=== PATIENT | male | born 1990 | race Caucasian/White ===

== ENCOUNTER 2018-07-28 13:57 | Outpatient (CLI) | payer MEDICAID ==
[2018-07-28 13:57] VITALS: BP 134/91
[~2018-07-28 13:57] MED LIST: CEPH250T PO; HYDR-3965 PO; METR-159 PO
== END 2018-07-28 14:33 | disposition home or self-care (01) ==
LOC: ORTHO 13:57
PROVIDERS: ATTEND Nurse Practitioner Family
DX: M25.532 Pain in left wrist (principal); J45.909 Unspecified asthma, uncomplicated; F17.200 Nicotine dependence, unspecified, uncomplicated; Z79.899 Other long term (current) drug therapy
CPT/HCPCS: 73110; G0463

== ENCOUNTER 2019-05-10 08:10 | Emergency (ER) | payer MEDICAID ==
[~2019-05-10] VITALS: Ht 180.3 cm; Wt 127.3 kg
[2019-05-10 08:18] VITALS: BP 153/93
[2019-05-10] MEDS ORDERED: PENI500T2 PO (08:26)
== END 2019-05-10 08:42 | disposition home or self-care (01) ==
LOC: ER 08:10
DX: J02.0 Streptococcal pharyngitis (principal); R03.0 Elevated blood-pressure reading, without diagnosis of hypertension; R05 Cough; F12.90 Cannabis use, unspecified, uncomplicated; Z79.2 Long term (current) use of antibiotics; Z79.899 Other long term (current) drug therapy
CPT/HCPCS: 99283

== ENCOUNTER 2020-02-12 21:52 | Emergency (ER) | payer MEDICAID ==
[~2020-02-12] VITALS: Ht 180.3 cm; Wt 129.5 kg
--- NOTE | 2020-02-12 23:05 | NUR ---
relieving RN for break, pt is resting quietly on gurney, resp even and unlabored, talking full sentences, no difficulty swallowing, has had a sore throat x2 weeks, seen at [facility] one week ago and instructed to take OTC meds for sore throat, seen at [facility] today and prescribed antibiotic, took first dose today, coughing up blood today, Dr Beltran at bedside to evaluate pt
[2020-02-12 23:27] VITALS: BP 114/72
== END 2020-02-12 23:28 | disposition home or self-care (01) ==
LOC: ER 21:53
DX: R51 Headache (principal); H92.01 Otalgia, right ear; J02.9 Acute pharyngitis, unspecified; F12.90 Cannabis use, unspecified, uncomplicated; Z72.89 Other problems related to lifestyle; Z79.2 Long term (current) use of antibiotics
CPT/HCPCS: 99281

== ENCOUNTER 2022-12-17 22:12 | Emergency (ER) | payer MEDICAID ==
[~2022-12-17] VITALS: Ht 180.3 cm; Wt 136.4 kg
[2022-12-17 22:17] VITALS: BP 132/93
== END 2022-12-17 23:09 | disposition home or self-care (01) ==
LOC: ER 22:12
DX: J02.9 Acute pharyngitis, unspecified (principal); F12.90 Cannabis use, unspecified, uncomplicated
CPT/HCPCS: 87081; 87880; 99283

== ENCOUNTER 2022-12-29 07:25 | Emergency (ER) | payer MEDICAID ==
[~2022-12-29] VITALS: Ht 180.3 cm; Wt 124.0 kg
[2022-12-29 07:38] VITALS: BP_DIAS 87
[2022-12-29 08:22] VITALS: BP_SYST 132
[2022-12-29] MEDS ORDERED: GUAI-647 PO (08:33)
[2022-12-29] MEDS ORDERED: ONDA4TAB12 PO (08:33)
== END 2022-12-29 08:44 | disposition home or self-care (01) ==
LOC: ER 07:28
DX: J06.9 Acute upper respiratory infection, unspecified (principal); F12.90 Cannabis use, unspecified, uncomplicated; Z72.89 Other problems related to lifestyle; Z79.899 Other long term (current) drug therapy
CPT/HCPCS: 71046; 99283

== ENCOUNTER 2024-06-04 20:55 | Emergency (ER) | payer MEDICAID ==
[~2024-06-04] VITALS: Ht 180.3 cm; Wt 139.4 kg
[~2024-06-04 20:55] MED LIST changes: +ONDA-243 PO
[2024-06-04] MEDS ORDERED: penicillin G benzathine 1.2 million unit/2ml syringe IM ONE (21:05)
[2024-06-04] MEDS ORDERED: AMOX500C2 PO (21:06)
[2024-06-04] MEDS: PENICILLIN G BENZATHINE 2,400,000 UNIT/4 ML SYRINGE IM ONE (21:30)
[2024-06-04 21:37] VITALS: BP 135/82; PULSE 60; RESP 16; TEMP 98.6; O2SAT 98
== END 2024-06-04 21:38 | disposition home or self-care (01) ==
LOC: ER 20:55
DX: J03.90 Acute tonsillitis, unspecified (principal); F12.90 Cannabis use, unspecified, uncomplicated; Z79.2 Long term (current) use of antibiotics; Z79.899 Other long term (current) drug therapy
CPT/HCPCS: 96372; 99283; J0561